=== PATIENT | male | born 1990 | race Caucasian/White ===

== ENCOUNTER 2018-06-18 20:07 | Emergency (ER) | payer MEDICAID ==
[2018-06-18] MEDS ORDERED: PROPARACAINE 0.5% 15 ML OPHT DROP ONE (20:23)
[2018-06-18] MEDS ORDERED: FLUORESCEIN SODIUM 1 MG STRIP OP ONE ×2 (20:23→20:58)
[2018-06-18] MEDS ORDERED: PROPARACAINE 0.5% 15 ML OPHT DROP OP ONE (20:54)
--- NOTE | 2018-06-18 20:58 | EDPHY ---
H & P Stated Complaint: poss metal in R eye since yesterday, no vision changes, irritated Time Seen by Provider: 06/18/18 20:28 HPI/ROS: Chief complaint: Possible metal foreign body in right eye History of present illness: This is a 27-year-old male who presents to the emergency department for a possible metal foreign body in his right eye. He states he was working underneath a car [place] anything something fell into his eye. He was not using a power tools that could of ejected something into his eye speeds. Since then he has had discomfort to the inner aspect of his right eye, like something scratching it. Inner aspect of the eye itself has turned red. He denies other associated signs or symptoms including no visual disturbances. His tetanus is up-to-date. He does not wear contacts. He occasionally wears glasses. - Personal History Current Tetanus/Diphtheria Vaccine: Yes Current Tetanus Diphtheria and Acellular Pertussis (TDAP): Yes - Medical/Surgical History Hx Asthma: No Hx Chronic Respiratory Disease: No Hx Diabetes: No Hx Cardiac Disease: No Hx Renal Disease: No Hx Cirrhosis: No Hx Alcoholism: No Hx HIV/AIDS: No Hx Splenectomy or Spleen Trauma: No Other PMH: ADHD - Social History Smoking Status: Current every day smoker - Physical Exam Exam: General: Alert, nontoxic. Skin: Periorbital tissue is unremarkable. Eyes: The eyelids are everted, no foreign body noted under the eyelids. However a small metallic foreign bodies noted at the margin of the superior medial eyelid. It is removed with forceps easily. There is an area of erythema to the medial aspect of the sclera. The rest of the eye is unremarkable. No discharge. No hyphema. No hypopyon. PERRLA. EOM intact. Constitutional: Initial Vital Signs Temperature (C) 36.7 C 06/18/18 20:12 Heart Rate 56 L 06/18/18 20:12 Respiratory Rate 20 06/18/18 20:12 Blood Pressure 127/82 H 06/18/18 20:12 O2 Sat (%) 94 06/18/18 20:12 O2 Delivery Mode Room Air Allergies/Adverse Reactions: haloperidol [From Haldol] Allergy (Verified 06/18/18 20:11) haloperidol lactate [From Haldol] Allergy (Verified 06/18/18 20:11) risperidone [From Risperdal] Allergy (Verified 06/18/18 20:11) Home Medications: Medication Instructions Recorded Polymyxin B Sulfate/Tmp [Polytrim 1 drops RTEYE Q4 7 Days bottle 06/18/18 Opht Drops (*)] Medical Decision Making Procedures: A foreign body was removed from the margin to the medial superior eyelid. Patient's eye was anesthetized with proparacaine. It was stained with fluorescein. It was examined with cobalt blue and white light. No foreign bodies. No filling defects. Visual acuities: Right eye 20/15, left eye 20/50, bilateral 20/15 ED Course/Re-evaluation: Patient seen under the supervision of my secondary supervising physician Dr. Jerod Simons. Patient presents to the emergency department concerned he has a foreign body in his right eye. An imbedded metallic sliver in his eyelid is easily removed with forceps. The rest of the examination is unremarkable. I will place him Polytrim eye antibiotics. His tetanus is already up-to-date. He is referred to ophthalmology for recheck. Return precautions are given. The patient voiced understanding and agreement with plan. Differential Diagnosis: Included but not limited to retained foreign body corneal abrasion, subconjunctival hemorrhage, doubtful globe rupture - Data Points Medications Given: Discontinued Medications Fluorescein Sodium (Bioglo) 1 mg OP EDNOW ONE Stop: 06/18/18 20:59 Last Admin: 06/18/18 20:59 Dose: 1 mg Proparacaine HCl (Alcaine 0.5%) 1 drops OP EDNOW ONE Stop: 06/18/18 20:55 Last Admin: 06/18/18 20:58 Dose: 1 drop Departure - Departure Disposition: Home, Routine, Self-Care Clinical Impression: Eye foreign body Qualifiers: Encounter type: initial encounter Laterality: right Qualified Code(s): T15.91XA - Foreign body on external eye, part unspecified, right eye, initial encounter Condition: Good Instructions: Eye Foreign Body (ED) Additional Instructions: Follow-up with Ophthalmology on Thursday for recheck Use ibuprofen 600 mg 3 times a day for the next 2-3 days for symptom control The if symptoms worsen or new symptoms develop return to the emergency department for recheck Referrals: Clarice Vasquez MD [Medical Doctor] - As per Instructions Prescriptions: Polymyxin B Sulfate/Tmp [Polytrim Opht Drops (*)] 1 drops RTEYE Q4 7 Days bottle
[2018-06-18 21:09] VITALS: BP 122/86
[2018-06-19] MEDS ORDERED: POLYMYXIN B SULFATE/TMP 10 ML OPHT.BTL RTEYE SCH
== END 2018-06-18 21:30 | disposition home or self-care (01) ==
PROC: 08C0XZZ Extirpation of Matter from Right Eye, External Approach (ICD-10-PCS; principal; 2018-06-18)
DX: T15.91XA Foreign body on external eye, part unspecified, right eye, initial encounter (principal); Y92.9 Unspecified place or not applicable

== ENCOUNTER 2018-08-19 21:11 | Emergency (ER) | payer MEDICAID ==
--- NOTE | 2018-08-19 21:26 | EDPHY ---
H & P Stated Complaint: Left toe pain, split webbing Time Seen by Provider: 08/19/18 21:26 HPI/ROS: HPI: This is a 27-year-old male who presents with Chief Complaint: Left toe pain and skin changes Location: Left toe web space Quality: Pain and skin changes Duration: Several weeks Signs and Symptoms: No bleeding, no radiation, no numbness, no weakness, no tingling, no incontinence, no decreased range of motion, no swelling, +pain, no fever Timing: Acute, worsening Severity: [id number] Context: Patient presents with left toe, between the 3rd and 4th toes web space , redness, drainage, odor and pain for the last several days. He reports that he purchased new shoes 3 weeks ago. His feet sweat excessively. He stands on his feet during the day. No history of diabetes mellitus. Denies radiation, weakness, decreased range of motion. Modifying Factors: None Comment: ROS: A comprehensive 10 system review of systems is otherwise negative aside from elements mentioned in the history of present illness. MEDICAL/SURGICAL/SOCIAL HISTORY: Medical history: Attention deficit hyperactivity disorder Surgical history: Denies Social history: Current every day smoker. CONSTITUTIONAL: Well-developed, well-nourished, adult white male, awake and alert, no obvious distress HEENT: Atraumatic and normocephalic. Wears glasses. NECK: supple, no midline tenderness Cardiovascular: Normal S1/S2, regular rate, regular rhythm, without murmur rub or gallop. PULMONARY/CHEST: Symmetrical and nontender. lear to auscultation bilaterally. Good air movement. No accessory muscle usage. ABDOMEN: Soft, nondistended, nontender. EXTREMITIES: 2/2 pulses, strength 5/5, left foot between the 3rd and 4th toe shows no skin breakdown but mild erythema and induration with white discharge and malodor; DIP/PIP/MTP flexion/extension intact with good light touch sensation. no deformities, no clubbing, no cyanosis or edema. NEUROLOGICAL: no focal neuro deficits. GCS 15. Light touch sensation intact. SKIN: Warm and dry, no erythema. no rash. Good capillary refill. Source: Patient Exam Limitations: No limitations - Personal History Current Tetanus Diphtheria and Acellular Pertussis (TDAP): Yes - Medical/Surgical History Hx Asthma: No Hx Chronic Respiratory Disease: No Hx Diabetes: No Hx Cardiac Disease: No Hx Renal Disease: No Hx Cirrhosis: No Hx Alcoholism: No Hx HIV/AIDS: No Hx Splenectomy or Spleen Trauma: No Other PMH: ADHD - Social History Smoking Status: Current every day smoker Constitutional: Initial Vital Signs Temperature (C) 36.9 C 08/19/18 21:14 Heart Rate 69 08/19/18 21:14 Respiratory Rate 20 08/19/18 21:14 Blood Pressure 136/60 H 08/19/18 21:14 O2 Sat (%) 95 08/19/18 21:14 O2 Delivery Mode Room Air Allergies/Adverse Reactions: haloperidol [From Haldol] Allergy (Verified 08/19/18 21:13) haloperidol lactate [From Haldol] Allergy (Verified 08/19/18 21:13) risperidone [From Risperdal] Allergy (Verified 08/19/18 21:13) Home Medications: Medication Instructions Recorded Nystatin Powder [Mycostatin Powder] 1 applic TP BID 10 Days #60 g 08/19/18 Medical Decision Making ED Course/Re-evaluation: Vital signs reviewed and stable upon arrival. Macerated skin is consistent with fungal infection. Advised proper fitting footwear, keep feet dry and prevent excessive sweating, nystatin topical powder, podiatry follow-up No signs of neurovascular compromise/tenting of skin/compartment syndrome/ extremities and joints examined above and below area of concern and are neurovascularly intact/cellulitis. This patient was seen under the supervision of my secondary supervising physician. I evaluated care for this patient independently. Discussed this patient with Dr. Colón who did not see the patient. Differential Diagnosis: Differential diagnosis includes but is not limited to fungal infection, candidiasis, cellulitis, MRSA infection, foreign body, fracture. Departure - Departure Disposition: Home, Routine, Self-Care Clinical Impression: Fungal infection of foot Qualifiers: Laterality: left Qualified Code(s): B35.3 - Tinea pedis Condition: Good Instructions: Athlete's Foot (ED) Additional Instructions: Please wear proper fitting footwear. Please refrain from sweating excessively in your shoes and socks. Wash your feet twice daily with antibacterial soap like [id number] Dial. Apply nystatin powder 2-3 times daily until the fungal infection heals. If Symptoms do not improve in 7 days, follow-up with Podiatry. Referrals: Hiram Levine DPM [Doctor of Podiatric Medicine] - As per Instructions Prescriptions: Nystatin Powder [Mycostatin Powder] 1 applic TP BID 10 Days #60 g
[2018-08-19 21:32] VITALS: BP 136/60
== END 2018-08-19 21:48 | disposition home or self-care (01) ==
DX: B35.3 Tinea pedis (principal)